=== PATIENT | female | born 1985 | race Caucasian/White ===

== ENCOUNTER → 2016-11-19 | Outpatient (CLI) | payer BC ==
[2016-11-19 13:21] LABS: MEAN CORPUSCULAR HEMOGLOBIN 26.7 pg (27.0-33.0); MEAN CORPUSCULAR HGB CONC 33.7 g/dl (32.0-36.5); MEAN CORPUSCULAR VOLUME 79.4 fl (80.0-96.0); RED CELL DISTRIBUTION WIDTH 13.2 % (11.5-14.5)
== END ==
LOC: M SMT 10:15
PROVIDERS: ATTEND Obstetrics & Gynecology
DX: Z34.82 Encounter for supervision of other normal pregnancy, second trimester (principal)

== ENCOUNTER → 2017-01-07 | Outpatient (REF) | payer BC | LOC: M LAB REF 12:53 | PROVIDERS: ATTEND Obstetrics & Gynecology | DX: Z34.83 Encounter for supervision of other normal pregnancy, third trimester (principal) ==

== ENCOUNTER 2017-02-09 03:57 | Inpatient (IN) | payer BC ==
[~2017-02-09] VITALS: Ht 160 cm; Wt 98.0 kg
[~2017-02-09 03:57] MED LIST: no medication
[2017-02-09 04:19] VITALS: BP 114/75
[2017-02-09 06:32] VITALS: BP 115/55
--- NOTE | 2017-02-09 10:24 | HPE ---
DATE OF ADMISSION: 02/09/2017 REASON FOR ADMISSION: Labor. HISTORY OF PRESENT ILLNESS: This patient is a 31-year-old 2, para 1, who presents at 41 weeks 0 days estimated gestational age by her last menstrual period, confirmed by first trimester ultrasound, with complaints of contractions. She reports active movement. Denies any vaginal bleeding or any leakage of fluid. Her course has been unremarkable. She initiated care in her first trimester and has been appropriate throughout. PAST MEDICAL HISTORY: None. PAST SURGICAL HISTORY: She has had section for nonreassuring status. Her medications includes vitamins. She has ALLERGIES to [employer]. SOCIAL HISTORY: She denies any alcohol, tobacco or drug use during the . PHYSICAL EXAMINATION: Vital signs are stable. She is afebrile. She has a category 1 heart rate tracing with contractions approximately every 3 minutes on tocometer. General appearance is well-appearing, no acute distress. Her lungs are clear to auscultation bilaterally. Cardiovascular: Heart regular rate and rhythm. Her abdomen is soft, gravid, nontender. Estimated weight (EFW) 3800 grams. Cervical exam: She is 4 cm dilated, 100% effaced and minus 2 station. LABORATORIES: Her blood type is O positive. Antibody screen is negative. Rubella is immune. RPR is nonreactive. Hepatitis surface antigen is negative. HIV is negative. Hepatitis C is nonreactive. Chlamydia and gonorrhea screens are negative. She had a normal 1-hour Glucola of 99 and she is GBS negative. ASSESSMENT: 1. This patient is a 31-year-old 2, para 1, at 41 weeks 0 days estimated gestational age here in active labor. 2. History of prior section. 3. Reassuring status. PLAN: 1. Admit to labor and delivery. Complete blood count (CBC), rapid plasma reagin (RPR), type and screen. 2. Patient has been thoroughly counseled in regards to mode of delivery and discussed elective repeat section versus a trial of labor after section. All the questions have been answered. She desires to proceed with a trial of labor after section. 3. Patient is a good candidate for an epidural.
[2017-02-09] MEDS ORDERED: OXYTOCIN 30 UNITS IN 0.9% NaCl 500ML IV BAG (J2590) As Ordered ONE (11:50)
[2017-02-09] MEDS ORDERED: OXYTOCIN DRIP 30 UNITS in APPROPRIATE DILUENT 1 EA IV SCH (12:12)
[2017-02-09] MEDS ORDERED: ACETAMINOPHEN 500 MG TAB PO PRN (12:15)
[2017-02-09] MEDS ORDERED: RHOGAM 300 MCG (1500 IU) INJ (J2790) IM SCH (12:15)
[2017-02-09] MEDS ORDERED: DOCUSATE SODIUM 100 MG CAP PO PRN (12:15)
[2017-02-09] MEDS ORDERED: DIBUCAINE 1% OINTMENT 30GM TOP PRN (12:15)
[2017-02-09] MEDS ORDERED: MEASLES,MUMPS,RUBELLA VACCINE INJ (MMR-II) (90707) SC SCH (12:15)
[2017-02-09] MEDS ORDERED: MOM 30ML SUSPENSION UDC PO PRN (12:15)
[2017-02-09] MEDS ORDERED: METHYLERGONOVINE MALEATE 0.2 MG TAB PO PRN (12:15)
--- NOTE | 2017-02-09 12:24 | DN ---
DATE: 02/09/2017 GENDER: Male. TIME OF : 1159 hours. SCORES: 9 and 9. WEIGHT: Pending. ANESTHESIA: None. LACERATION: None. ESTIMATED BLOOD LOSS: 300 mL. COUNTS: Five laparotomy sponges accounted for prior to and after delivery. DELIVERY NOTE: On 02/09/2017 at 1159 hours, Ms. Mckinney, a 34-year-old, 2, now para 2 had a vaginal after section of a liveborn male infant, scores of 9 and 9. Head was delivered RODRIGO over an intact perineum. There was a nuchal cord, which was manually reduced, followed by delivery of left anterior shoulder, right posterior shoulder and corpus. Infant was handed to mother with good cry. Cord was clamped times two and was cut by the father of the baby under my direction. Cord blood was then obtained. Placenta was drained and delivered grossly intact. A premix bag of 500 mL of normal saline with 30 units of Pitocin was bolused along with uterine massage until the uterus was firm. On inspection, the cervix, vagina and perineum were grossly intact and hemostatic. Mother and baby recovering in stable condition. The couple has decided to name their son
[2017-02-09 18:00] VITALS: BP 125/58
[2017-02-10 05:36] VITALS: BP 108/56
[2017-02-10] MEDS: PRENATAL VITAMIN TAB PO SCH (08:44)
[2017-02-10] MEDS: IBUPROFEN 800 MG TAB PO PRN (08:44)
[2017-02-10 18:17] VITALS: BP 123/80
[2017-02-11 06:02] VITALS: BP 128/60
[2017-02-11] MEDS ORDERED: ACET50TA PO (08:32)
[2017-02-11] MEDS ORDERED: IBUP-1114 PO (08:32)
[2017-02-11] MEDS ORDERED: PRENTAB9 PO (08:32)
[2017-02-11] MEDS: PRENATAL VITAMIN TAB PO SCH (10:03)
[2017-02-11] MEDS: IBUPROFEN 800 MG TAB PO PRN (10:04)
== END 2017-02-11 10:40 | disposition home or self-care (01) | DRG 560 ==
LOC: M LDO 03:57 → M LDI 04:41 → M OBS 14:01
PROVIDERS: ADMIT Obstetrics & Gynecology; ATTEND Obstetrics & Gynecology
PROC: 10E0XZZ Delivery of Products of Conception, External Approach (ICD-10-PCS; principal; 2017-02-09)
PROC: 10907ZC Drainage of Amniotic Fluid, Therapeutic from Products of Conception, Via Natural or Artificial Opening (ICD-10-PCS; 2017-02-09)
DX: O48.0 Post-term pregnancy (principal); Z3A.41 41 weeks gestation of pregnancy; O34.211 Maternal care for low transverse scar from previous cesarean delivery; O69.81X0 Labor and delivery complicated by cord around neck, without compression, not applicable or unspecified; Z37.0 Single live birth; Z88.8 Allergy status to other drugs, medicaments and biological substances

== ENCOUNTER → 2019-04-24 | Outpatient (REF) | payer BC ==
[~2019-04-24] MED LIST changes: +IBUP-1114 PO; +MAPA500T2 PO; +PRENTAB9 PO
[2019-04-24 18:31] LABS: ALBUMIN 3.8 GM/DL (3.2-5.2); ALT/SGPT 38 U/L (12-78); BILIRUBIN,TOTAL 0.4 MG/DL (0.2-1.0); BLOOD UREA NITROGEN 16 MG/DL (7-18); CALCIUM LEVEL 8.8 MG/DL (8.5-10.1); CARBON DIOXIDE LEVEL 26 MEQ/L (21-32); CHLORIDE LEVEL 107 MEQ/L (98-107); CHOLESTEROL LEVEL 101 MG/DL (<200); CHOLESTEROL RISK RATIO 2.061 (<5); CREATININE FOR GFR 0.69 MG/DL (0.55-1.30); GLOMERULAR FILTRATION RATE > 60.0 (>60); GLUCOSE, FASTING 91 MG/DL (70-100); HDL CHOLESTEROL 49 MG/DL (>40); LDL CHOLESTEROL 48 MG/DL (<100); NON-HDL-C 52 MG/DL; POTASSIUM SERUM 4.8 MEQ/L (3.5-5.1); SODIUM LEVEL 139 MEQ/L (136-145); TOTAL PROTEIN 7.8 GM/DL (6.4-8.2); TRIGLYCERIDES LEVEL 20 MG/DL (<150)
[2019-04-27 10:08] LABS: TESTOSTERONE FREE (DIRECT) 6.7 pg/mL (0.0-4.2)
== END ==
LOC: M SFHCPLAZ 08:53 → M SFHCADAM 08:58
PROVIDERS: ATTEND Nurse Practitioner Family
DX: Z00.00 Encounter for general adult medical examination without abnormal findings (principal); L68.0 Hirsutism; Z13.220 Encounter for screening for lipoid disorders; Z68.32 Body mass index [BMI] 32.0-32.9, adult

== ENCOUNTER → 2019-09-23 | Outpatient (REF) | payer BC ==
[2019-09-23 13:05] LABS: BLOOD UREA NITROGEN 19 MG/DL (7-18); CALCIUM LEVEL 9.3 MG/DL (8.5-10.1); CARBON DIOXIDE LEVEL 28 MEQ/L (21-32); CHLORIDE LEVEL 106 MEQ/L (98-107); CREATININE FOR GFR 0.74 MG/DL (0.55-1.30); GLOMERULAR FILTRATION RATE > 60.0 (>60); GLUCOSE, FASTING 94 MG/DL (70-100); POTASSIUM SERUM 4.7 MEQ/L (3.5-5.1); SODIUM LEVEL 140 MEQ/L (136-145)
== END ==
LOC: M LABDRWAD 12:15
PROVIDERS: ATTEND Nurse Practitioner Family
DX: L68.0 Hirsutism (principal)

== ENCOUNTER → 2022-01-04 | Outpatient (REF) | payer BC | LOC: M PLALAB 13:17 | PROVIDERS: ATTEND Advanced Practice Midwife | DX: Z12.4 Encounter for screening for malignant neoplasm of cervix (principal) ==

== ENCOUNTER → 2023-01-20 | Outpatient (REF) | payer BC | LOC: M SFHCWAGY 13:02 | PROVIDERS: ATTEND Advanced Practice Midwife | DX: Z12.4 Encounter for screening for malignant neoplasm of cervix (principal) | CPT/HCPCS: 87624; G0123 ==

== ENCOUNTER → 2024-05-24 | Outpatient (REF) | payer BC | LOC: M PLALAB 13:41 | PROVIDERS: ATTEND Advanced Practice Midwife | DX: Z12.4 Encounter for screening for malignant neoplasm of cervix (principal) ==

== ENCOUNTER → 2025-11-01 | Outpatient (REF) | payer BC ==
[2025-11-04 11:00] LABS: HPV APTIMA Not Detected (Not Detected)
== END ==
LOC: M SFHCWAGY 17:24
PROVIDERS: ATTEND Advanced Practice Midwife
DX: Z12.4 Encounter for screening for malignant neoplasm of cervix (principal)
CPT/HCPCS: 87624; G0123